=== PATIENT | female | born 1980 ===

== ENCOUNTER 2020-01-23 13:15 | Inpatient (IN) | payer MEDICAID, OTHER ==
[~2020-01-23] VITALS: Ht 172.7 cm; Wt 74.8 kg
[~2020-01-23 13:15] MED LIST: ACID1TAB4 PO; Acetaminophen PO; Clindamycin Hcl PO; INSU100V SQ; INSU3INS6 SQ; LEVO750T21 PO; MULT-24 PO; Silver Sulfadiazine TP
--- NOTE | 2020-01-23 13:30 | NUR ---
Pt has accessed Port a cath on LT chest on arrival.
[2020-01-23] MEDS ORDERED: [UNRECOGNIZED DRUG - CODE] IV (13:41)
[2020-01-23] MEDS ORDERED: IV NORMAL SALINE 1000 ML BAG IV ONE (13:45)
[2020-01-23] MEDS ORDERED: ASCO500C18 PO (13:57)
[2020-01-23] MEDS ORDERED: INSU100V10 SQ (13:57)
[2020-01-23] MEDS ORDERED: FERR325T24 PO (13:57)
[2020-01-23] MEDS ORDERED: DIPH25CA83 PO (13:57)
[2020-01-23] MEDS ORDERED: HYDROMORPHONE PO (13:57)
[2020-01-23] MEDS ORDERED: TRAZ-182 PO (13:57)
[2020-01-23] MEDS ORDERED: CYAN-51 PO (13:57)
[2020-01-23] MEDS ORDERED: PSYL0.525 PO (13:57)
[2020-01-23] MEDS ORDERED: PARO25TA16 PO (13:57)
[2020-01-23] MEDS ORDERED: PREG75CA PO (13:57)
[2020-01-23 13:59] LABS: BASOPHILS # (AUTO) 0.1 K/uL (0.0-8.0); BASOPHILS % (AUTO) 0.7 % (0.0-2.0); EOSINOPHILS # (AUTO) 0.3 K/uL (0.0-0.7); EOSINOPHILS % (AUTO) 1.6 % (0.0-7.0); HEMATOCRIT 24.7 % (31.2-41.9); HEMOGLOBIN 7.8 g/dL (10.9-14.3); LYMPHOCYTES # (AUTO) 1.8 K/uL (20.0-40.0); LYMPHOCYTES % (AUTO) 8.6 % (20.5-51.5); MEAN CORPUSCULAR HEMOGLOBIN 23.6 uug (24.7-32.8); MEAN CORPUSCULAR HGB CONC 32 g/dL (32.3-35.6); MEAN CORPUSCULAR VOLUME 74.6 fL (75.5-95.3); MONOCYTES # (AUTO) 1.4 K/uL (2.0-10.0); MONOCYTES % (AUTO) 6.5 % (0.0-11.0); NEUTROPHILS # (AUTO) 17.3 K/uL (1.8-8.9); NEUTROPHILS % (AUTO) 82.6 % (38.5-71.5); PLATELET COUNT (AUTO) 406 K/uL (179-408); RED BLOOD CELL COUNT(AUTO) 3.32 MIL/uL (3.63-4.92); WHITE BLOOD COUNT (AUTO) 20.9 K/uL (3.8-11.8)
--- NOTE | 2020-01-23 14:03 | NUR ---
PT refused to have EKG and monitor placed. Dr cristobal made aware and spoke to Pt.
[2020-01-23 14:12] LABS: CARBON DIOXIDE 23 mmol/L (21-32); CHLORIDE 94 mmol/L (98-107); CREATININE 2.2 mg/dL (0.6-1.3); POTASSIUM 4.5 mmol/L (3.5-5.1); UREA NITROGEN, BLOOD 32 mg/dL (7-18)
[2020-01-23 14:14] LABS: GLUCOSE 372 mg/dL (74-106)
[2020-01-23 14:15] LABS: MAGNESIUM 2.1 mg/dL (1.8-2.4); PHOSPHOROUS 5.4 mg/dL (2.5-4.9)
[2020-01-23] MEDS ORDERED: CEFTRIAXONE 2 G in IV DEXTROSE 5% 100 ML IV ONE (14:15)
[2020-01-23] MEDS ORDERED: IV NORMAL SALINE 500 ML BAG IV ONE (14:15)
[2020-01-23 14:18] LABS: ALANINE AMINOTRANSFERASE 15 U/L (14-59); ALKALINE PHOSPHATASE 101 U/L (50-136); ASPARTATE AMINOTRANSFERASE 12 U/L (15-37); BILIRUBIN,DIRECT 0.1 mg/dL (0.0-0.2); BILIRUBIN,TOTAL 0.2 mg/dL (0.2-1.0); ETHANOL < 3 MG/DL (0-0); TOTAL PROTEIN, SERUM 7.2 g/dL (6.4-8.2)
[2020-01-23 14:19] LABS: ACETAMINOPHEN < 2.0 ug/mL (10-30); LYMPHOCYTES % (MANUAL) 11 % (20-40); MONOCYTES % (MANUAL) 6 % (2-10); NEUTROPHILS % (MANUAL) 83 % (42-75)
[2020-01-23] MEDS ORDERED: INSU100I19 SQ (14:22)
[2020-01-23] MEDS ORDERED: MAGN400O6 PO (14:22)
[2020-01-23] MEDS ORDERED: POLY15DR27 EACHEYE (14:22)
[2020-01-23] MEDS ORDERED: GUAI100S9 GT (14:22)
[2020-01-23] MEDS ORDERED: INSU100I4 SQ ×2 (14:22)
[2020-01-23] MEDS ORDERED: BISA10SU61 RC (14:22)
[2020-01-23] MEDS ORDERED: DOCU100C36 PO (14:22)
[2020-01-23] MEDS ORDERED: ASPI-605 PO (14:22)
[2020-01-23] MEDS ORDERED: PANT40TA4 PO (14:22)
[2020-01-23] MEDS ORDERED: POLY17PO4 PO (14:22)
[2020-01-23] MEDS ORDERED: ONDA-104 PO (14:22)
[2020-01-23] MEDS ORDERED: DEXTROSE 50% IV (14:22)
[2020-01-23] MEDS ORDERED: GLUC1KIT IM (14:22)
[2020-01-23] MEDS ORDERED: NOVOLOG (14:22)
[2020-01-23] MEDS ORDERED: FLUT9.9S NS (14:22)
[2020-01-23] MEDS ORDERED: CEFTRIAXONE 1 G VIAL ONE (14:36)
[2020-01-23 14:40] LABS: THYROID STIMULATING HORMONE 3.056 mIU/mL (0.358-3.740)
[2020-01-23 14:44] LABS: *BILIRUBIN,URIN 2+ (NEGATIVE); *BLOOD, URINE 1+ (NEGATIVE); *COLOR,URINE YELLOW (YELLOW); *KETONES,URINE 1+ (NEGATIVE); *UROBILINOGEN,URINE 0.2 E.U./dl (NORMAL); LEUKOCYTE ESTERASE ,URINE NEGATIVE (NEGATIVE); NITRITE, URINE NEGATIVE (NEGATIVE); PH,URINE 5.5 (5.0-8.0); UGLUCOSE 2+ (NEGATIVE)
[2020-01-23 14:47] LABS: *CLARITY,URINE HAZY (CLEAR)
[2020-01-23 14:58] LABS: BACTERIA,URINE FEW /HPF (NONE SEEN); SQUAMOUS EPITHELIAL CELL,UR MODERATE /HPF (NONE SEEN)
[2020-01-23] MEDS ORDERED: MULTIVIT, IRON, MIN NO. 8, FA TABLET PO STA (15:03)
[2020-01-23 15:05] LABS: *AMPHETAMINE, URINE NEGATIVE (NEGATIVE); *BARBITURATE, URINE NEGATIVE (NEGATIVE); *CANNABINOID, URINE NEGATIVE (NEGATIVE); *COCCAINE, URINE NEGATIVE (NEGATIVE); *OPIATE, URINE POSITIVE (NEGATIVE); *PHENCYCLIDINE SCREEN,URINE NEGATIVE (NEGATIVE)
[2020-01-23] MEDS ORDERED: diphenhydrAMINE 50 MG/1 ML VIAL IV ONE (15:15)
[2020-01-23] MEDS ORDERED: diphenhydrAMINE 50 MG/1 ML VIAL ONE (15:25)
[2020-01-23] MEDS ORDERED: INSULIN REGULAR, HUMAN 5 UNIT in IV NORMAL SALINE 100 ML IV ONE ×2 (15:30)
--- NOTE | 2020-01-23 16:49 | NUR ---
report given to Elinor kwok.
[2020-01-23 17:30] VITALS: BP 137/45
--- NOTE | 2020-01-23 18:42 | NUR ---
Received patient from ER via [facility] with Diagnosis of hyperglycemia under Dr. Dominguez. Patient is awake, alert and verbally responsive. No signs of distress noted. NO SOB. No complain of pain or discomfort at this time. Right Chest Macie cath in placed. Head to toe assessment was done, Patient noted with left foot scar, refused to take a picture. All belongings was signed and placed the cigarette in the contraband. last Blood sugar check was 143. Kept clean and comfortable. Kept the call light within easy reach. Will endorse to Oncoming Nurse.
[2020-01-23] MEDS: IV NS 1000 ML 1,000 ML IV PRN (18:58)
[2020-01-23] MEDS ORDERED: DEXTROSE 50% 50 ML DISP.SYRIN IV PRN (19:00)
[2020-01-23] MEDS ORDERED: ALTE2VIA2 IJ (19:49)
--- NOTE | 2020-01-23 19:52 | NUR ---
Received patient in bed, sleeping comfortably. No s/s of pain/discomforts at thsi time. Right chest Port A cath intact and patent. No s/s of redness/swelling on site. No s/s of hypo/hyperglycemia noted. Safety measures and fall precaution maintained. Continue care as planned.
[2020-01-23] MEDS ORDERED: HYDR2TAB4 PO (19:53)
[2020-01-23] MEDS ORDERED: PSYL3.4P6 PO (19:55)
[2020-01-23] MEDS ORDERED: INSU100V11 (19:59)
[2020-01-23] MEDS ORDERED: GUAI5SYR PO (20:05)
[2020-01-23] MEDS ORDERED: ACET650T10 PO (20:09)
[2020-01-23] MEDS: HYDROMORPHONE 1 MG/1 ML DISP.SYRIN IV PRN ×2 (20:14→22:50)
[2020-01-23] MEDS: BLOOD SUGAR DIAGNOSTIC 1 EACH STRIP VI SCH (20:23)
[2020-01-23] MEDS ORDERED: PARO-154 PO (20:28)
[2020-01-23] MEDS ORDERED: POLYVINYL ALCOHOL OPHT DROPS 15 ML BOTTLE EACHEYE PRN (20:30)
[2020-01-23] MEDS ORDERED: ZOLPIDEM 5 MG TABLET PO PRN (20:30)
[2020-01-23] MEDS ORDERED: Medication Not On Formulary EA (Acetaminophen 650 MG) PO PRN (20:30)
[2020-01-23] MEDS ORDERED: Medication Not On Formulary EA (Diphenhydramine Hcl (Benadryl) 25 MG) PO SCH (20:30)
[2020-01-23] MEDS ORDERED: ONDANSETRON 4 MG/2 ML VIAL IV PRN (20:30)
[2020-01-23] MEDS ORDERED: BISACODYL 10 MG SUPP.RECT RC PRN (20:30)
[2020-01-23] MEDS ORDERED: diphenhydrAMINE 25 MG CAP PO PRN (20:45)
[2020-01-23] MEDS ORDERED: ACETAMINOPHEN 325 MG TABLET PO PRN (20:45)
[2020-01-23] MEDS ORDERED: INSULIN DETEMIR 300 UNIT/3 ML CARTRIDGE SQ SCH (21:00)
[2020-01-23] MEDS: INSULIN GLARGINE,HUM 300 UNITS/3 ML CARTRIDGE SQ SCH (21:00)
[2020-01-23] MEDS: TRAZODONE 50 MG TABLET PO SCH ×2 (21:00→21:08)
--- NOTE | 2020-01-23 21:12 | NUR ---
Patient refused Trazodone ordered this time claiming it would make her sick. BS 84mg/dl, Lantus insulin not given, offered vanilla pudding and apple sauce and hot tea with 5 packs of sweet and low sugar per pt's preference. Will monitor.
--- NOTE | 2020-01-24 01:50 | NUR ---
Called asking if [employer] CHIEF available because she wants to go out and smoke. Informed patient that she's not allowed to smoke at this time per hospital rules and regulations. Charge nurse made aware.
[2020-01-24] MEDS: HYDROMORPHONE 1 MG/1 ML DISP.SYRIN IV PRN ×3 (01:57→08:19)
--- NOTE | 2020-01-24 02:03 | NUR ---
Found IV not infusing and tubing disconnected. Asked patient if she did it and requested to have the IVF stop for now claiming it makes her cold. Explained to patient the risk and benefit but begged to hold it for now. Charge nurse made aware.
--- NOTE | 2020-01-24 02:34 | NUR ---
Patient complaining that her bed smells like urine. Linen was wet but denies having peed in bed. Complete bed change done.
--- NOTE | 2020-01-24 05:04 | NUR ---
Shift End Report: VS stable. Slept fairly. Always watching/monitoring the time for her next dose of pain medication. Medicated 4x times for pain during the shift with mild relief. No s/s of hypo/hyperglycemia. Been eating very frequent. Very needy and pain medication seeker I should say. All needs attended and met. No significant event reported all night. Continue plan of care.
[2020-01-24] MEDS: BLOOD SUGAR DIAGNOSTIC 1 EACH STRIP VI SCH ×4 (05:31→20:53)
[2020-01-24 06:03] LABS: BILIRUBIN,TOTAL 0.1 mg/dL (0.2-1.0); CREATININE 1.6 mg/dL (0.6-1.3); MAGNESIUM 1.6 mg/dL (1.8-2.4); PHOSPHOROUS 3.4 mg/dL (2.5-4.9); POTASSIUM 4.5 mmol/L (3.5-5.1); TOTAL PROTEIN, SERUM 6.4 g/dL (6.4-8.2)
[2020-01-24 06:43] LABS: BASOPHILS # (AUTO) 0.1 K/uL (0.0-8.0); BASOPHILS % (AUTO) 0.6 % (0.0-2.0); EOSINOPHILS # (AUTO) 0.3 K/uL (0.0-0.7); EOSINOPHILS % (AUTO) 2.1 % (0.0-7.0); LYMPHOCYTES # (AUTO) 2.4 K/uL (20.0-40.0); MEAN CORPUSCULAR HEMOGLOBIN 24.3 uug (24.7-32.8); MEAN CORPUSCULAR HGB CONC 32 g/dL (32.3-35.6); MEAN CORPUSCULAR VOLUME 75.2 fL (75.5-95.3); MONOCYTES # (AUTO) 1.6 K/uL (2.0-10.0); MONOCYTES % (AUTO) 9.9 % (0.0-11.0); NEUTROPHILS # (AUTO) 11.7 K/uL (1.8-8.9); NEUTROPHILS % (AUTO) 72.4 % (38.5-71.5); PLATELET COUNT (AUTO) 391 K/uL (179-408); RED BLOOD CELL COUNT(AUTO) 3.04 MIL/uL (3.63-4.92); WHITE BLOOD COUNT (AUTO) 16.1 K/uL (3.8-11.8)
[2020-01-24 06:54] LABS: HEMOGLOBIN 7.4 g/dL (10.9-14.3)
[2020-01-24 06:56] LABS: HEMATOCRIT 22.9 % (31.2-41.9)
[2020-01-24 07:17] LABS: THYROID STIMULATING HORMONE 2.429 mIU/mL (0.358-3.740)
--- NOTE | 2020-01-24 08:00 | NUR ---
Received pt. resting in bed alert oriented x4. Pt. states she has pain. PRN pain medication not due yet. Will provide pt. with pain medication once available. pt. denies SOB/ difficulty breathing. O2 Saturation stable on room air. Vitals within normal limits. R Chest Wall ute cath in place. Pt. agrees to prescribed fluids and agrees to not remove self from Iv fluids. Pt. is selective with which medications she wants to take. Pt. only wants aspirin and insulin. Educated pt on importance of AM medications. Explained risks and benefits, pt. still refused. Safety measures in place. Call light within reach. Will continue to monitor pt.
[2020-01-24] MEDS: PANTOPRAZOLE SODIUM 40 MG VIAL IV SCH (08:03)
[2020-01-24] MEDS: PAROXETINE HCL 10 MG TABLET PO SCH (08:04)
[2020-01-24] MEDS: DOCUSATE SODIUM 100 MG CAPSULE PO SCH ×2 (08:04→17:00)
[2020-01-24] MEDS: MIRALAX 17 GM POWD.PACK PO SCH ×2 (08:04→17:00)
[2020-01-24] MEDS: ASPIRIN EC 81 MG TABLET.DR PO SCH (08:05)
[2020-01-24] MEDS: INSULIN GLARGINE,HUM 300 UNITS/3 ML CARTRIDGE SQ SCH ×2 (08:10→21:00)
[2020-01-24] MEDS: INSULIN REGULAR, HUMAN 300 UNIT/3 ML VIAL SQ PRN ×2 (08:10→11:53)
[2020-01-24] MEDS ORDERED: INSULIN DETEMIR 300 UNIT/3 ML CARTRIDGE SQ SCH (09:00)
[2020-01-24] MEDS ORDERED: PAROXETINE HCL 10 MG PO SCH (09:00)
[2020-01-24] MEDS ORDERED: MAGNESIUM SULFATE/D5W 100 ML IV SCH (09:30)
[2020-01-24] MEDS ORDERED: MAGNESIUM OXIDE 400 MG TABLET PO ONE (10:30)
[2020-01-24] MEDS: HYDROMORPHONE 2 MG/1 ML DISP.SYRIN IV PRN ×3 (11:32→20:52)
[2020-01-24 11:37] VITALS: BP 123/48
[2020-01-24] MEDS: IV NS 1000 ML 1,000 ML IV PRN (11:50)
[2020-01-24] MEDS: SOD FERRIC GLUC COMPLX/SUCROSE 125 MG in IV NORMAL SALINE 100 ML IV SCH (14:21)
[2020-01-24] MEDS: diphenhydrAMINE 50 MG/1 ML VIAL IV PRN ×2 (15:44→23:14)
[2020-01-24] MEDS: CEFTRIAXONE 1 G in IV DEXTROSE 5% 50 ML IV SCH (15:45)
[2020-01-24 15:49] VITALS: BP 138/60
[2020-01-24] MEDS ORDERED: INSU100V28 SQ ×2 (18:35)
[2020-01-24] MEDS ORDERED: DEXT50DI8 IV (18:35)
[2020-01-24] MEDS ORDERED: CEFT1VIA15 IV (18:35)
[2020-01-24] MEDS ORDERED: HYDR2DIS IV (18:35)
[2020-01-24] MEDS ORDERED: ZOLP5TAB8 PO (18:35)
[2020-01-24] MEDS ORDERED: Blood Sugar Diagnostic VI (18:35)
--- NOTE | 2020-01-24 19:33 | NUR ---
pt. to be transferred to [facility]. [facility] field case manager spoke to pt. and pt. agreed to transfer. Dr. Dominguez at bedside explained why pt. needs to be transferred. pt. agreed. No beds at the moment. will endorse transfer to PM nurse.
--- NOTE | 2020-01-24 19:45 | NUR ---
Patient received in bed, alert awake x4. Patient denies any sob/ respiratory distress. Patient complains of pain, will administer prescribed PRN pain medication. Patient on room air, vitals are stable. Right chest wall portacath in place. Safety measures in place. Bed low and locked position, call lights within reach. Will continue with the plan of care.
[2020-01-24 20:00] VITALS: BP 160/45
[2020-01-24] MEDS: TRAZODONE 50 MG TABLET PO SCH ×2 (20:50→21:00)
--- NOTE | 2020-01-24 21:05 | NUR ---
Patient's blood sugar was 65mg/dl. Did not give insulin d/t borderline low blood sugar. Advised patient to eat something and gave hot sugar water as requested. Will continue to monitor.
--- NOTE | 2020-01-24 22:21 | NUR ---
Received call from [facility] who advised nurse that receiving hospital is requesting PCR test for COVID-19 before they will accept admission. Nurse will contact MD Dominguez to advise.
--- NOTE | 2020-01-24 23:10 | NUR ---
Reassessed blood glucose level, now 81, encouraged the patient to consume more snacks. Patient stated she just had a yogurt and said she should be fine. Nurse advised patient to notify if having any s/s of hypoglycemia. Will continue to monitor and assess.
[2020-01-25] MEDS: HYDROMORPHONE 2 MG/1 ML DISP.SYRIN IV PRN ×7 (00:54→21:39)
[2020-01-25 04:00] VITALS: BP 104/26
[2020-01-25] MEDS: diphenhydrAMINE 50 MG/1 ML VIAL IV PRN ×4 (06:36→21:40)
[2020-01-25] MEDS: BLOOD SUGAR DIAGNOSTIC 1 EACH STRIP VI SCH ×4 (06:42→21:08)
--- NOTE | 2020-01-25 07:06 | NUR ---
Patient resting in bed, awake and alert. Patient given prescribed medications and PRN pain meds. Patient denies any acute distress. Patient denies any pain as of the moment. Vital are stable. Safety measures in place. Will endorse accordingly to the oncoming nurse.
--- NOTE | 2020-01-25 07:30 | NUR ---
on bed, resting , no acute distress at this time.
[2020-01-25] MEDS: MIRALAX 17 GM POWD.PACK PO SCH ×2 (08:28→17:08)
[2020-01-25] MEDS: ASPIRIN EC 81 MG TABLET.DR PO SCH (08:28)
[2020-01-25] MEDS: PAROXETINE HCL 10 MG TABLET PO SCH (08:29)
[2020-01-25] MEDS: DOCUSATE SODIUM 100 MG CAPSULE PO SCH ×2 (08:29→16:54)
[2020-01-25] MEDS: PANTOPRAZOLE SODIUM 40 MG VIAL IV SCH (08:29)
[2020-01-25] MEDS: INSULIN GLARGINE,HUM 300 UNITS/3 ML CARTRIDGE SQ SCH ×2 (08:41→21:13)
[2020-01-25 08:49] LABS: BASOPHILS # (AUTO) 0.1 K/uL (0.0-8.0); BASOPHILS % (AUTO) 1.1 % (0.0-2.0); EOSINOPHILS # (AUTO) 0.5 K/uL (0.0-0.7); EOSINOPHILS % (AUTO) 3.9 % (0.0-7.0); LYMPHOCYTES # (AUTO) 2.4 K/uL (20.0-40.0); LYMPHOCYTES % (AUTO) 18.5 % (20.5-51.5); MEAN CORPUSCULAR HGB CONC 32 g/dL (32.3-35.6); MEAN CORPUSCULAR VOLUME 75.1 fL (75.5-95.3); MONOCYTES # (AUTO) 1.4 K/uL (2.0-10.0); MONOCYTES % (AUTO) 11.3 % (0.0-11.0); NEUTROPHILS # (AUTO) 8.3 K/uL (1.8-8.9); NEUTROPHILS % (AUTO) 65.2 % (38.5-71.5); PLATELET COUNT (AUTO) 358 K/uL (179-408); RED BLOOD CELL COUNT(AUTO) 2.96 MIL/uL (3.63-4.92); WHITE BLOOD COUNT (AUTO) 12.8 K/uL (3.8-11.8)
[2020-01-25 08:56] LABS: HEMOGLOBIN 7.1 g/dL (10.9-14.3)
[2020-01-25 08:57] LABS: HEMATOCRIT 22.2 % (31.2-41.9)
[2020-01-25 09:02] LABS: BILIRUBIN,TOTAL 0.2 mg/dL (0.2-1.0); CREATININE 1.1 mg/dL (0.6-1.3); MAGNESIUM 1.5 mg/dL (1.8-2.4); PHOSPHOROUS 3.9 mg/dL (2.5-4.9); POTASSIUM 4.1 mmol/L (3.5-5.1); TOTAL PROTEIN, SERUM 6.5 g/dL (6.4-8.2)
[2020-01-25 09:53] LABS: LYMPHOCYTES % (MANUAL) 20 % (20-40); NEUTROPHILS % (MANUAL) 69 % (42-75)
[2020-01-25 09:54] LABS: MONOCYTES % (MANUAL) 11 % (2-10)
[2020-01-25 09:59] LABS: *BILIRUBIN,URIN NEGATIVE (NEGATIVE); *CLARITY,URINE CLEAR (CLEAR); *COLOR,URINE YELLOW (YELLOW); *KETONES,URINE NEGATIVE (NEGATIVE); *UROBILINOGEN,URINE 0.2 E.U./dl (NORMAL); LEUKOCYTE ESTERASE ,URINE NEGATIVE (NEGATIVE); NITRITE, URINE NEGATIVE (NEGATIVE); PH,URINE 6.5 (5.0-8.0); UGLUCOSE NEGATIVE (NEGATIVE)
[2020-01-25 10:09] LABS: *BLOOD, URINE NEGATIVE (NEGATIVE)
[2020-01-25 10:44] LABS: *CREATININE,URINE 31.3 mg/dL (30-125); *URINE TOTAL PROTEIN RANDOM 21.9 mg/dL (<150/24HR)
[2020-01-25] MEDS ORDERED: MAGNESIUM OXIDE 400 MG TABLET PO ONE (11:30)
[2020-01-25 12:00] VITALS: BP 99/52
--- NOTE | 2020-01-25 12:00 | NUR ---
medicated as requested for pain . monitored for safety , aware , to prevent fall , injury. verbalized understanding.
[2020-01-25] MEDS: INSULIN REGULAR, HUMAN 300 UNIT/3 ML VIAL SQ PRN ×2 (12:13→17:22)
[2020-01-25] MEDS: CEFTRIAXONE 1 G in IV DEXTROSE 5% 50 ML IV SCH (14:14)
[2020-01-25] MEDS: SOD FERRIC GLUC COMPLX/SUCROSE 125 MG in IV NORMAL SALINE 100 ML IV SCH (14:57)
[2020-01-25 16:00] VITALS: BP 98/55
[2020-01-25 17:52] VITALS: BP 117/67
[2020-01-25 18:07] VITALS: BP 125/77
--- NOTE | 2020-01-25 19:13 | NUR ---
blood tranfusing well, no reactions noted
[2020-01-25 20:41] VITALS: BP 127/74
[2020-01-25] MEDS: TRAZODONE 50 MG TABLET PO SCH (21:00)
[2020-01-25] MEDS: INSULIN REGULAR, HUMAN 300 UNITS/3 ML VIAL SQ PRN (21:11)
[2020-01-25] MEDS: IV NS 1000 ML 1,000 ML IV PRN (21:43)
--- NOTE | 2020-01-25 23:48 | NUR ---
awake alert and oriented x4. 1 unit of PRBC infusing well via right upper chest portacath @ beginning of shift. VSS no reaction noted. Needs attended. OOB to bedside commode. Voiding well. 1 unit PRBC done @ 2044 Vital signs taken and recorded Temp 98.2 HR 86 Resp 17 BP 130/69 BS 201 with coverage given. Medicated with Dilaudid as ordered. Possible d/c to [facility] in am.
[2020-01-26] MEDS: HYDROMORPHONE 2 MG/1 ML DISP.SYRIN IV PRN ×6 (00:43→20:43)
[2020-01-26 04:50] VITALS: BP 97/62
[2020-01-26] MEDS: diphenhydrAMINE 50 MG/1 ML VIAL IV PRN ×3 (04:52→21:28)
[2020-01-26 06:10] LABS: BASOPHILS # (AUTO) 0.1 K/uL (0.0-8.0); BASOPHILS % (AUTO) 0.6 % (0.0-2.0); EOSINOPHILS # (AUTO) 0.2 K/uL (0.0-0.7); EOSINOPHILS % (AUTO) 1.2 % (0.0-7.0); HEMATOCRIT 26.2 % (31.2-41.9); HEMOGLOBIN 8.6 g/dL (10.9-14.3); LYMPHOCYTES # (AUTO) 2.1 K/uL (20.0-40.0); LYMPHOCYTES % (AUTO) 11.9 % (20.5-51.5); MEAN CORPUSCULAR HEMOGLOBIN 24.7 uug (24.7-32.8); MEAN CORPUSCULAR HGB CONC 33 g/dL (32.3-35.6); MEAN CORPUSCULAR VOLUME 75.5 fL (75.5-95.3); MONOCYTES # (AUTO) 1.5 K/uL (2.0-10.0); MONOCYTES % (AUTO) 8.8 % (0.0-11.0); NEUTROPHILS # (AUTO) 13.4 K/uL (1.8-8.9); NEUTROPHILS % (AUTO) 77.5 % (38.5-71.5); PLATELET COUNT (AUTO) 355 K/uL (179-408); RED BLOOD CELL COUNT(AUTO) 3.48 MIL/uL (3.63-4.92); WHITE BLOOD COUNT (AUTO) 17.3 K/uL (3.8-11.8)
[2020-01-26 06:38] LABS: BILIRUBIN,TOTAL 0.2 mg/dL (0.2-1.0); CREATININE 1.1 mg/dL (0.6-1.3); MAGNESIUM 1.6 mg/dL (1.8-2.4); POTASSIUM 4.3 mmol/L (3.5-5.1)
[2020-01-26] MEDS: BLOOD SUGAR DIAGNOSTIC 1 EACH STRIP VI SCH ×4 (06:43→20:41)
[2020-01-26] MEDS ORDERED: PANTOPRAZOLE SODIUM 40 MG TABLET.DR PO SCH (07:00)
[2020-01-26] MEDS: DOCUSATE SODIUM 100 MG CAPSULE PO SCH ×3 (08:06→17:00)
[2020-01-26] MEDS: ASPIRIN EC 81 MG TABLET.DR PO SCH (08:07)
[2020-01-26] MEDS: PROTEIN SUPPLEMENT (PROSTAT) 30 ML LIQUID PO SCH ×3 (08:07→16:28)
[2020-01-26] MEDS: MIRALAX 17 GM POWD.PACK PO SCH ×2 (08:07→16:27)
[2020-01-26] MEDS: PAROXETINE HCL 10 MG TABLET PO SCH (08:07)
[2020-01-26] MEDS: INSULIN GLARGINE,HUM 300 UNITS/3 ML CARTRIDGE SQ SCH ×2 (11:39→20:59)
[2020-01-26 11:59] VITALS: BP 112/69
[2020-01-26] MEDS ORDERED: MAGNESIUM OXIDE 400 MG TABLET PO ONE (12:45)
[2020-01-26] MEDS: CEFTRIAXONE 1 G in IV DEXTROSE 5% 50 ML IV SCH (14:03)
[2020-01-26 15:49] VITALS: BP 101/59
--- NOTE | 2020-01-26 16:45 | NUR ---
REFUSED COVERAGE FOR LUNCH AND DINNER ACCU CHECK D/T DROP IN BLOOD SUGAR OVER NIGHT AND NOT EATING ALOT. WILL COVER NIGHT ACCUCHECK IF NEEDED LANTUS 35U GIVEN SCHEDULED
--- NOTE | 2020-01-26 19:45 | NUR ---
Patient received in bed. AAO x 4. No distress or SOB was noted. Complain of pain in her left foot rating 9/10 in numeric scale. physical assessment done. Safety measures maintained, Fall prevention observed. Bed in low and locked position. Call light and frequently used items within reach. continue to monitor.
[2020-01-26] MEDS: INSULIN REGULAR, HUMAN 300 UNITS/3 ML VIAL SQ PRN (21:00)
[2020-01-26] MEDS: TRAZODONE 50 MG TABLET PO SCH (21:00)
--- NOTE | 2020-01-26 21:25 | NUR ---
Patient refused Trazodone 50 mg Tab. Risks and benefits, Still refused. Continue to monitor.
[2020-01-27] MEDS: HYDROMORPHONE 2 MG/1 ML DISP.SYRIN IV PRN (00:11)
--- NOTE | 2020-01-27 00:31 | NUR ---
Patient was transferred to the [facility], admitted by Dr. Dudley. The report was given to nurse Deshpande. Condition good, no distress or SOB was noted. VS checked and was stable. All medication administered. Belonging given to the patient. Patient left at 0030 by [facility].
== END 2020-01-27 00:30 | disposition short-term general hospital (02) | DRG 720 ==
LOC: ER 13:17 → TELE3 17:13 → MEDSURG3 18:00
PROVIDERS: ADMIT Internal Medicine; ATTEND Internal Medicine
PROC: 30233N1 Transfusion of Nonautologous Red Blood Cells into Peripheral Vein, Percutaneous Approach (ICD-10-PCS; principal; 2020-01-25)
DX: A41.9 Sepsis, unspecified organism (principal); N17.0 Acute kidney failure with tubular necrosis; E43 Unspecified severe protein-calorie malnutrition; E10.10 Type 1 diabetes mellitus with ketoacidosis without coma; D68.69 Other thrombophilia; E10.21 Type 1 diabetes mellitus with diabetic nephropathy; E10.319 Type 1 diabetes mellitus with unspecified diabetic retinopathy without macular edema; E10.40 Type 1 diabetes mellitus with diabetic neuropathy, unspecified; E86.1 Hypovolemia; Z79.4 Long term (current) use of insulin; D63.8 Anemia in other chronic diseases classified elsewhere; D50.9 Iron deficiency anemia, unspecified; E87.1 Hypo-osmolality and hyponatremia; K21.9 Gastro-esophageal reflux disease without esophagitis; K44.9 Diaphragmatic hernia without obstruction or gangrene; N18.9 Chronic kidney disease, unspecified; I12.9 Hypertensive chronic kidney disease with stage 1 through stage 4 chronic kidney disease, or unspecified chronic kidney disease; Z89.422 Acquired absence of other left toe(s); K29.70 Gastritis, unspecified, without bleeding; E10.51 Type 1 diabetes mellitus with diabetic peripheral angiopathy without gangrene; E78.5 Hyperlipidemia, unspecified; F17.210 Nicotine dependence, cigarettes, uncomplicated; H54.61 Unqualified visual loss, right eye, normal vision left eye; Z79.82 Long term (current) use of aspirin; R16.0 Hepatomegaly, not elsewhere classified
CPT/HCPCS: 36415; 70030-TC; 71045; 73620; 80307; 80329; 83550; 83605; 83735; 84100; 84156; 84300; 84443; 85025; 86850; 86900; 86901; 86920; 87040; 87077; 87086; 93005; A4663; C9113; G0378; G0480; G0480-TC; J0696; J1170; J1200; J1815; J2916; J3490; J7030; J7050; J7060; P9016-BL; P9021; Q0163